=== PATIENT | male | born 1930 | race African-American/Black ===

== ENCOUNTER 2018-02-07 13:11 | Emergency (ER) | payer OTHER ==
[~2018-02-07] VITALS: Ht 175.3 cm; Wt 85.0 kg
[2018-02-07] MEDS ORDERED: ATOR10TA69 PO (13:20)
[2018-02-07] MEDS ORDERED: HYDR-4133 PO (13:20)
[2018-02-07] MEDS ORDERED: LOSA25TA12 PO (13:20)
[2018-02-07] MEDS ORDERED: FURO20TA4 PO (13:20)
[2018-02-07] MEDS ORDERED: ASPI-986 PO (13:20)
[2018-02-07] MEDS ORDERED: AMLO2.5T45 PO (13:20)
[2018-02-07] MEDS ORDERED: SODIUM CHLORIDE 0.9% 500 ML IV ONE (14:15)
[2018-02-07 15:08] LABS: BASOPHILS % 0.9 % (0.0-2.0); EOSINOPHILS % 14.4 % (0.0-5.0); HEMATOCRIT. 32.5 % (42.0-52.0); HEMOGLOBIN. 10.9 g/dL (14.0-18.0); LYMPHOCYTES % 17.5 % (20.0-50.0); MEAN CORPUSCULAR HEMOGLOBIN 31.2 pg (28.0-32.0); MEAN CORPUSCULAR VOLUME 93.4 fL (80.0-94.0); MEAN PLATELET VOLUME 7.8 fl (7.4-10.4); NEUTROPHILS % 60.2 % (40.0-76.0); PLATELET 203 x1000/uL (130-400); RED BLOOD CELL COUNT 3.48 mill/uL (4.7-6.1); RED CELL DISTRIBUTION WIDTH 15.4 % (11.6-14.6)
[2018-02-07 15:13] LABS: CHLORIDE 109 mEq/L (98-107)
[2018-02-07 15:15] LABS: INR 1.1; PROTHROMBIN TIME 11.1 sec (9.1-11.1)
[2018-02-07 18:49] VITALS: BP 153/74
== END 2018-02-07 19:41 | disposition short-term general hospital (02) ==
LOC: ER 13:11
DX: K92.2 Gastrointestinal hemorrhage, unspecified (principal); R55 Syncope and collapse; N28.9 Disorder of kidney and ureter, unspecified; E78.00 Pure hypercholesterolemia, unspecified; E11.9 Type 2 diabetes mellitus without complications; I10 Essential (primary) hypertension; Z88.8 Allergy status to other drugs, medicaments and biological substances; Z79.899 Other long term (current) drug therapy
CPT/HCPCS: 36415; 71045; 80053; 85025; 85610; 86850; 86900; 86901; 93005; 96360; 99285; J7040